=== PATIENT | female | born 1985 | race Caucasian/White ===

== ENCOUNTER 2017-02-23 08:24 | Emergency (ER) | payer MEDICAID ==
[2017-02-23 10:06] VITALS: BP 116/75
== END 2017-02-23 10:06 | disposition home or self-care (01) ==
LOC: ED 08:24
DX: J02.9 Acute pharyngitis, unspecified (principal)
CPT/HCPCS: J0561; J1100

== ENCOUNTER 2017-08-20 13:55 | Emergency (ER) | payer MEDICAID ==
[2017-08-20 15:07] VITALS: BP 128/70
== END 2017-08-20 15:07 | disposition home or self-care (01) ==
LOC: ED 13:55
DX: L27.0 Generalized skin eruption due to drugs and medicaments taken internally (principal); N39.0 Urinary tract infection, site not specified; T36.8X5A Adverse effect of other systemic antibiotics, initial encounter; Y92.89 Other specified places as the place of occurrence of the external cause
CPT/HCPCS: Q0163

== ENCOUNTER 2017-08-21 06:46 | Emergency (ER) | payer MEDICAID ==
[2017-08-21 07:58] LABS: UA SPECIFIC GRAVITY 1.015 (1.005-1.035); microscopic required? YES; urine erythrocyte 3+ (NEGATIVE)
[2017-08-21 10:51] VITALS: BP 108/57
== END 2017-08-21 10:51 | disposition home or self-care (01) ==
LOC: ED 06:46
PROVIDERS: Emergency Medicine
DX: T78.3XXA Angioneurotic edema, initial encounter (principal); L50.0 Allergic urticaria; R07.9 Chest pain, unspecified
CPT/HCPCS: J0171; J1200; J2930; J3490; J7030

== ENCOUNTER 2017-12-07 21:53 | Emergency (ER) | payer MEDICAID ==
[~2017-12-07] VITALS: Ht 149.9 cm; Wt 59.9 kg
[2017-12-07 23:19] VITALS: BP 125/78; Ht 149.9 cm; Wt 59.9 kg
== END 2017-12-08 07:15 | disposition home or self-care (01) ==
LOC: ED 21:53
DX: J09.X2 Influenza due to identified novel influenza A virus with other respiratory manifestations (principal)
CPT/HCPCS: 87804; J1885

== ENCOUNTER 2018-01-18 04:34 | Emergency (ER) | payer MEDICAID ==
[~2018-01-18] VITALS: Ht 157.5 cm; Wt 60.8 kg
[2018-01-18 04:39] VITALS: Ht 157.5 cm; Wt 60.8 kg
[2018-01-18 05:29] VITALS: BP 116/68
== END 2018-01-18 05:29 | disposition home or self-care (01) ==
LOC: ED 04:34
DX: J32.9 Chronic sinusitis, unspecified (principal); Z88.8 Allergy status to other drugs, medicaments and biological substances
CPT/HCPCS: J1885

== ENCOUNTER 2018-06-17 12:16 | Emergency (ER) | payer MEDICAID ==
[~2018-06-17] VITALS: Ht 149.9 cm; Wt 61.2 kg
[2018-06-17 12:20] VITALS: Ht 149.9 cm; Wt 61.2 kg
[2018-06-17 13:32] VITALS: BP 135/89
== END 2018-06-17 13:33 | disposition home or self-care (01) ==
LOC: ED 12:16
DX: L73.8 Other specified follicular disorders (principal); K64.8 Other hemorrhoids

== ENCOUNTER 2018-06-20 09:20 | Emergency (ER) | payer MEDICAID ==
[~2018-06-20] VITALS: Ht 149.9 cm; Wt 61.2 kg
[2018-06-20 09:28] VITALS: BP 125/75; Ht 149.9 cm; Wt 61.2 kg
== END 2018-06-20 11:20 | disposition home or self-care (01) ==
LOC: ED 09:20
DX: N64.4 Mastodynia (principal); Z88.1 Allergy status to other antibiotic agents
CPT/HCPCS: 76641

== ENCOUNTER 2018-09-21 07:15 | Emergency (ER) | payer MEDICAID ==
[~2018-09-21] VITALS: Ht 149.9 cm; Wt 63.0 kg
[2018-09-21 07:25] VITALS: Ht 149.9 cm; Wt 63.0 kg
[2018-09-21 08:09] LABS: BASOPHIL % 0.4 % (0-2); PLATELET COUNT 263 x10^3mcL (130-400); RED CELL DISTRIBUTION WIDTH 13.6 % (11.5-14.5)
[2018-09-21 08:21] LABS: CALCIUM 8.4 mg/dL (8.5-10.1); CARBON DIOXIDE 22.9 mmol/L (21-32); CHLORIDE SERUM 104 mmol/L (98-107); CREATININE SERUM 0.6 mg/dL (0.6-1.0); GFR1 > 60 mL/min; GLUCOSE SERUM 103 mg/dL (74-106); POTASSIUM SERUM 3.4 mmol/L (3.5-5.1); SODIUM SERUM 137 mmol/L (136-145)
[2018-09-21 09:50] VITALS: BP 114/72
== END 2018-09-21 09:48 | disposition home or self-care (01) ==
LOC: ED 07:15
PROVIDERS: Emergency Medicine
DX: R00.2 Palpitations (principal); R06.02 Shortness of breath; R20.2 Paresthesia of skin; Z98.890 Other specified postprocedural states; Z88.1 Allergy status to other antibiotic agents
CPT/HCPCS: 36415; 85378; Q0092

== ENCOUNTER 2018-12-20 10:17 | Emergency (ER) | payer MEDICAID ==
[~2018-12-20] VITALS: Ht 149.9 cm; Wt 62.6 kg
[2018-12-20 10:22] VITALS: Ht 149.9 cm; Wt 62.6 kg
[2018-12-20 11:36] LABS: BASOPHIL % 0.5 % (0-2); PLATELET COUNT 294 x10^3mcL (130-400); RED CELL DISTRIBUTION WIDTH 13.3 % (11.5-14.5)
[2018-12-20 11:44] LABS: CALCIUM 8.6 mg/dL (8.5-10.1); CARBON DIOXIDE 25.6 mmol/L (21-32); CHLORIDE SERUM 103 mmol/L (98-107); CREATININE SERUM 0.6 mg/dL (0.6-1.0); GFR1 > 60 mL/min; GLUCOSE SERUM 99 mg/dL (74-106); POTASSIUM SERUM 3.9 mmol/L (3.5-5.1); SODIUM SERUM 135 mmol/L (136-145)
[2018-12-20 11:52] LABS: ALBUMIN 4.1 g/dL (3.4-5.0); ALKALINE PHOSPHATASE 69 U/L (46-116); ALT/SGPT 35 U/L (14-59); AMYLASE 39 U/L (25-115); AST/SGOT 20 U/L (15-37); BILIRUBIN TOTAL 0.3 mg/dL (0.20-1.00); LIPASE 107 IU/L (73-393)
[2018-12-20 11:55] LABS: TOTAL PROTEIN, SERUM 8.3 g/dL (6.4-8.2)
[2018-12-20 14:17] VITALS: BP 116/72
== END 2018-12-20 14:17 | disposition home or self-care (01) ==
LOC: ED 10:17
PROVIDERS: Specialist
DX: N39.0 Urinary tract infection, site not specified (principal); Z98.890 Other specified postprocedural states; Z88.8 Allergy status to other drugs, medicaments and biological substances
CPT/HCPCS: J0696; J1885

== ENCOUNTER 2018-12-25 19:03 | Emergency (ER) | payer MEDICAID ==
[~2018-12-25] VITALS: Ht 149.9 cm; Wt 63.5 kg
[2018-12-25 19:08] VITALS: Ht 149.9 cm; Wt 63.5 kg
[2018-12-25 21:03] LABS: PLATELET COUNT 265 x10^3mcL (130-400)
[2018-12-25 21:10] LABS: CALCIUM 8.6 mg/dL (8.5-10.1); CARBON DIOXIDE 23.4 mmol/L (21-32); CHLORIDE SERUM 103 mmol/L (98-107); CREATININE SERUM 0.9 mg/dL (0.6-1.0); GFR1 > 60 mL/min; GLUCOSE SERUM 109 mg/dL (74-106); POTASSIUM SERUM 3.9 mmol/L (3.5-5.1); SODIUM SERUM 139 mmol/L (136-145)
[2018-12-25 21:15] LABS: ALBUMIN 4.1 g/dL (3.4-5.0); ALKALINE PHOSPHATASE 69 U/L (46-116); ALT/SGPT 38 U/L (14-59); AMYLASE 38 U/L (25-115); AST/SGOT 28 U/L (15-37); BILIRUBIN TOTAL 0.42 mg/dL (0.20-1.00); LIPASE 106 IU/L (73-393)
[2018-12-25 21:16] LABS: TOTAL PROTEIN, SERUM 8.6 g/dL (6.4-8.2)
[2018-12-25 21:25] LABS: microscopic required? YES; urine erythrocyte 3+ (NEGATIVE)
[2018-12-25 22:20] LABS: ATYPICAL LYMPH 1 %; BAND NEUTROPHIL 1 % (0-10); MONOCYTE 5 % (0-7); SEGMENTED NEUTROPHILS 83 % (37-75)
[2018-12-25 22:21] LABS: PLATELET MORPHOLOGY PLATELETS NORMAL; rbc morphology (normal/abnorm) NORMAL (NORMAL)
[2018-12-25 23:37] VITALS: BP 119/73
== END 2018-12-25 23:37 | disposition home or self-care (01) ==
LOC: ED 19:03
PROVIDERS: Emergency Medicine
DX: N13.2 Hydronephrosis with renal and ureteral calculous obstruction (principal); Z88.1 Allergy status to other antibiotic agents
CPT/HCPCS: 36415; J1885; Q0162

== ENCOUNTER 2020-08-31 17:06 | Emergency (ER) | payer MEDICAID ==
[~2020-08-31] VITALS: Ht 149.9 cm; Wt 59.4 kg
[2020-08-31 17:15] VITALS: Ht 149.9 cm; Wt 59.4 kg
[2020-08-31 18:15] LABS: PLATELET COUNT 267 x10^3mcL (130-400); RED CELL DISTRIBUTION WIDTH 13.2 % (11.5-14.5)
[2020-08-31 18:20] LABS: CALCIUM 8.8 mg/dL (8.5-10.1); CARBON DIOXIDE 26.6 mmol/L (21-32); CHLORIDE SERUM 104 mmol/L (98-107); CREATININE SERUM 0.7 mg/dL (0.6-1.0); GFR1 > 60 mL/min; GLUCOSE SERUM 90 mg/dL (74-106); POTASSIUM SERUM 3.7 mmol/L (3.5-5.1); SODIUM SERUM 137 mmol/L (136-145)
[2020-08-31 18:25] LABS: ALBUMIN 4.2 g/dL (3.4-5.0); ALKALINE PHOSPHATASE 56 U/L (46-116); ALT/SGPT 22 U/L (14-59); AST/SGOT 18 U/L (15-37); BILIRUBIN TOTAL 0.6 mg/dL (0.20-1.00)
[2020-08-31 18:27] LABS: TOTAL PROTEIN, SERUM 8.3 g/dL (6.4-8.2)
[2020-08-31 20:02] VITALS: BP 129/70
== END 2020-08-31 20:03 | disposition home or self-care (01) ==
LOC: ED 17:06
PROVIDERS: Emergency Medicine
DX: R10.31 Right lower quadrant pain (principal); R10.2 Pelvic and perineal pain; Z88.8 Allergy status to other drugs, medicaments and biological substances
CPT/HCPCS: 87491; 87591; Q0092

== ENCOUNTER 2020-10-17 21:14 | Emergency (ER) | payer MEDICAID ==
[~2020-10-17] VITALS: Ht 152.4 cm; Wt 59.4 kg
[2020-10-17 21:19] VITALS: Ht 152.4 cm; Wt 59.4 kg
[2020-10-17 22:22] LABS: BASOPHIL % 0.2 % (0-2)
[2020-10-17 22:32] LABS: PLATELET COUNT 300 x10^3mcL (130-400)
[2020-10-17 22:33] LABS: CALCIUM 9.2 mg/dL (8.5-10.1); CARBON DIOXIDE 27.2 mmol/L (21-32); CHLORIDE SERUM 103 mmol/L (98-107); CREATININE SERUM 0.7 mg/dL (0.6-1.0); GFR1 > 60 mL/min; GLUCOSE SERUM 110 mg/dL (74-106); POTASSIUM SERUM 3.8 mmol/L (3.5-5.1); SODIUM SERUM 139 mmol/L (136-145)
[2020-10-17 22:40] LABS: ALKALINE PHOSPHATASE 60 U/L (46-116); ALT/SGPT 22 U/L (14-59); AST/SGOT 14 U/L (15-37); BILIRUBIN TOTAL 0.36 mg/dL (0.20-1.00)
[2020-10-17 23:35] VITALS: BP 109/63
== END 2020-10-17 23:35 | disposition home or self-care (01) ==
LOC: ED 21:14
DX: R07.89 Other chest pain (principal); Z98.890 Other specified postprocedural states; Z88.1 Allergy status to other antibiotic agents